=== PATIENT | male | born 1970 | race African-American/Black ===

== ENCOUNTER → 2021-10-23 | Emergency (ER) | payer OTHER ==
[~2021-10-23] VITALS: Ht 167.6 cm; Wt 73.9 kg
[~2021-10-23] MED LIST: ALTACE1.25 MG; FLAGYL500MG PO; INTEGRA F CAPS1 EACH PO; INTESTINEX1 CA1 PO; LEVAQUIN750 MG PO; PERCOCET 5/3251 TAB PO; PROTONIX40 MG PO
== END | disposition home or self-care (01) ==
LOC: ER 09:49
DX: R60.0 Localized edema (principal); K04.7 Periapical abscess without sinus